=== PATIENT | male | born 1940 | race Caucasian/White ===

== ENCOUNTER 2017-06-21 13:21 | Emergency (ER) | payer MEDICARE, OTHER ==
[~2017-06-21] VITALS: Ht 182.9 cm; Wt 116.1 kg
--- OUTSIDE RECORDS SUMMARY | 2017-06-21 13:23 | XMS REPORT ---
Author Author [facility] Address Unknown Phone Unavailable Care Team Providers Care Geographic Information Systems Analyst Name Role Phone AMY ANDREW Unavailable Unavailable Problems This patient has no known problems. Allergies, Adverse Reactions, Alerts This patient has no known allergies or adverse reactions. Medications This patient has no known medications. Results Test Description Test Time Test Comments Text Results Atomic Results Result Comments MRI KNEE LEFT WO [place] [address] Patient Name: THANH MALDONADO MR #: [id number] : 1940 Age/Sex: 76/M Req #: [id number] [facility] Physician: Ordered by: AMY ANDREW MD Report #: [id number] Location: MRI Room/Bed: Procedure: [id number] MRI/MRI KNEE LEFT WO Exam Date: 12/10/16 Exam Time: 1747 REPORT STATUS: Signed Left knee MRI without contrast. History : Knee pain. Repetitive trauma. Decreased range of motion. Pain worse with walking. Comparison: None. Technique: Multiplanar multi-sequence MRI of the knee without contrast. Findings: Medial compartment: There is a complex medial meniscus tear involving the posterior horn and body segments with an obliquely oriented component extending to the inferior articular margin best seen on series 4 image 27. The medial compartmental articular cartilage surfaces are slightly thinned with regions of fraying and fissuring. The medial collateral ligament complex is intact. Lateral compartment: No meniscal tear or cartilage abnormality. The LCL complex is normal. Intercondylar notch: The ACL and PCL are intact. Patellofemoral compartment: There is articular cartilage fraying and deep fissuring in the patellofemoral compartment with underlying bone marrow edema most pronounced at the median ridge of the patella. Extensor mechanism: The quadriceps and patellar tendons are normal. Other findings: There is a joint effusion and synovitis. There is no acute fracture, subluxation or avascular necrosis. There is a small lobulated Duran's cyst with evidence of partial rupture into the posterior soft tissues. 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 Articular cartilage fraying in the pleasure in the patellofemoral compartment with underlying bone marrow edema. Small lobulated Duran's cyst with evidence of partial rupture into the posterior soft tissues. Signed by: Dr. Meek Hudson M.D. on 12/11/2016 9:13 AM Dictated By: MEEK HUDSON MD, MD 2 Transcribed By: BRIT on 12/11/16912 COPY TO: AMY ANDREW MD KNEE LEFT THREE VIEWS [place] [address] Patient Name: THANH MALDONADO MR #: [id number] : 1940 Age/Sex: 76/M Req #: [id number] Adm Physician: Ordered by: AMY ANDREW MD Report #: [id number] Location: MRI Room/Bed: Procedure: [id number] DX/KNEE LEFT THREE VIEWS Exam Date: 12/10/16 Exam Time: 1725 REPORT STATUS: Signed PROCEDURE: X-RAY LEFT KNEE, THREE OR MORE VIEWS COMPARISON: None. INDICATIONS: KNEE PAIN, OTHER INTRNAL KNEE DERANGEMENTS FINDINGS: No acute, displaced fracture or dislocation. The joint spaces are well-maintained. No joint effusion. Atherosclerotic vascular calcifications. CONCLUSION: No acute osseous abnormality. Dictated by: Real Chiang M.D. on 12/10/2016 at 17:43 Electronically approved by: Real Chiang M.D. on 12/10/2016 at 17 :43 Dictated By: REAL CHIANG MD 1743 Transcribed By: EVERETT on 12/10/16 1743 COPY TO: AMY ANDREW MD
[2017-06-21 14:48] LABS: BASOPHILS % 0.4 % (0.0-1.0); EOSINOPHILS # (AUTO) 0.3 (0.0-0.4); EOSINOPHILS % 4.1 % (0.0-6.0); HEMATOCRIT 38.5 % (38.2-49.6); HEMOGLOBIN 12.2 g/dL (14.0-18.0); LYMPHOCYTES # (AUTO) 1.1 (1.0-3.2); MEAN CORPUSCULAR HEMOGLOBIN 23.7 pg (28-32); MEAN CORPUSCULAR HGB CONC 31.7 g/dL (31-35); MEAN CORPUSCULAR VOLUME 74.9 fL (81-99); MONOCYTES # (AUTO) 0.5 (0.2-0.8); MONOCYTES % 6.9 % (4.4-11.3); NEUTROPHILS # (AUTO) 5.7 (2.1-6.9); NEUTROPHILS % 74.2 % (38.7-80.0); PLATELET COUNT 295 x10e3/uL (140-360); RED BLOOD COUNT 5.14 x10e6/uL (4.3-5.7); RED CELL DISTRIBUTION WIDTH 14.3 % (11.7-14.4)
[2017-06-21 15:02] LABS: INR 1.03; PROTHROMBIN TIME 12.7 seconds (11.9-14.5)
[2017-06-21 15:03] LABS: PARTIAL THROMBOPLASTIN TIME 29.2 seconds (23.8-35.5)
[2017-06-21 15:12] LABS: ALBUMIN 3.4 g/dL (3.5-5.0); ANION GAP 13.8 mmol/L (8-16); CALCIUM 11.2 mg/dL (8.4-10.2); POTASSIUM 4.8 mmol/L (3.5-5.1)
--- NOTE | 2017-06-21 15:15 | Diagnostic Imaging Report ---
PROCEDURE: Frontal and lateral views of the chest. COMPARISON: None. INDICATIONS: severe headache FINDINGS: Lines/tubes: None. Lungs: The lungs are well inflated and clear. There is no evidence of pneumonia or pulmonary edema. Pleura: There is no pleural effusion or pneumothorax. Heart and mediastinum: Mild enlargement of the cardiac silhouette. Bones: No acute bony abnormality. Ligamentous anchors project over the right humeral head. IMPRESSION: No acute cardiopulmonary disease. Dictated by: Bob Vaca M.D. on 06/21/2017 at 15:15 Electronically approved by: Bob Vaca M.D. on 06/21/2017 at 15:15
[2017-06-21 15:19] LABS: CREATINE KINASE MB 2.3 ng/mL (0-5.0)
--- NOTE | 2017-06-21 15:50 | Diagnostic Imaging Report ---
EXAMINATION: Head and face CT without contrast. HISTORY: Severe headache, history of visual changes of the right eye, since last night COMPARISON: Brain MRI on 07/13/2013 TECHNIQUE: Multidetector axial images were obtained without contrast from the foramen magnum to the vertex and over the face. The images were reconstructed using brain and bone algorithms. Thin section brain images were reformatted into coronal and sagittal planes. Head CT findings: Skull: No lytic or blastic lesions. No fractures. Parenchyma: Few scattered bilateral hypodensities, most likely nonspecific chronic microvascular ischemic changes. Otherwise no areas of abnormal density in the brain parenchyma. No mass, hemorrhage or CT evidence of acute vascular insult. Brain volume: Normal for age. Ventricles: No hydrocephalus or displacement. Arteries: No density suggestive of thrombus. Dural sinuses: No abnormal density. Extra-axial spaces: No abnormal density. Foramen magnum: No mass, Chiari malformation, or basilar invagination. Sella: No obvious mass. Face CT findings: Bones: Unremarkable. Facial soft tissues: Unremarkable. Orbits contents: Unremarkable. Paranasal sinuses and drainage pathways: -Aplastic frontal sinuses within normal variation of anatomy. -Near complete opacification of the bilateral anterior ethmoidal sinuses. Mild mucosal inflammatory thickening of the bilateral maxillary sinuses and probable retention cyst along the alveolar recess of the left maxillary sinus. Opacification of the bilateral maxillary ostia and infundibuli, the needle meati are patent. -The bilateral posterior ethmoidal and sphenoid sinuses are clear. The bilateral sphenoethmoidal recesses are patent. Nasal septum and nasal cavities: Mildly deviated to the right with small bone spur Anatomic variations: No significant anatomic variations. Teeth: No acute abnormality of the visualized teeth. IMPRESSION: 1. No acute intracranial abnormalities, particularly no hemorrhage or acute cortical infarct. 2. Mild chronic microvascular ischemic changes. 3. Bilateral ethmoidal and maxillary sinusitis. Signed by: Dr. Xiao Saldaña M.D. on 06/21/2017 3:47 PM
[2017-06-21] MEDS ORDERED: INSULIN REGULAR, HUMAN 100 UNIT/1 ML 3ML VIAL SQ STA (16:30)
== END 2017-06-21 19:15 | disposition home or self-care (01) ==
LOC: ER 13:21
DX: R51 Headache (principal); E11.65 Type 2 diabetes mellitus with hyperglycemia; E83.51 Hypocalcemia; J01.00 Acute maxillary sinusitis, unspecified; J01.20 Acute ethmoidal sinusitis, unspecified
CPT/HCPCS: 36415; 70450; 70486; 71046; 80053; 82550; 82553; 84484; 85025; 85610; 85651; 85730; 93005; 99284